=== PATIENT | female | born 1950 | race Two or more races ===

== ENCOUNTER 2021-04-05 08:55 | Outpatient (CLI) | payer OTHER | END 2021-04-05 08:56 | disposition home or self-care (01) | LOC: RAD 08:55 → EDBD 08:55 → RAD 08:56 | PROVIDERS: ATTEND Obstetrics & Gynecology | DX: R05.8 Other specified cough (principal) ==

== ENCOUNTER → 2021-08-26 | Outpatient (CLI) | payer OTHER | END | disposition home or self-care (01) | LOC: NUCLEAR 12:08 | PROVIDERS: ATTEND Specialist | DX: M81.0 Age-related osteoporosis without current pathological fracture (principal) ==

== ENCOUNTER 2021-09-04 11:10 | Outpatient (CLI) | payer OTHER | END 2021-09-04 11:12 | disposition home or self-care (01) | LOC: RAD 11:10 | PROVIDERS: ATTEND Specialist | DX: M19.042 Primary osteoarthritis, left hand (principal); M19.041 Primary osteoarthritis, right hand ==

== ENCOUNTER 2021-09-13 08:37 | Outpatient (CLI) | payer OTHER | END 2021-09-13 08:43 | disposition home or self-care (01) | LOC: TOM 08:37 | PROVIDERS: ATTEND Internal Medicine Pulmonary Disease | DX: R06.02 Shortness of breath (principal); J45.40 Moderate persistent asthma, uncomplicated; R07.9 Chest pain, unspecified ==

== ENCOUNTER 2021-10-04 07:13 | Outpatient (CLI) | payer OTHER | END 2021-10-04 07:16 | disposition home or self-care (01) | LOC: NUCLEAR 07:13 | PROVIDERS: ATTEND Internal Medicine Cardiovascular Disease | DX: I20.0 Unstable angina (principal) | CPT/HCPCS: 78452; 93017; A9500; J0153 ==

== ENCOUNTER 2023-06-15 14:38 | Outpatient (CLI) | payer OTHER ==
[2023-06-15 14:57] LABS: HEMATOCRIT 38.9 % (36.0-45.00); MEAN CELL VOLUME 89.1 fL (80.00-100.00); MEAN CORPUSCULAR HEMOGLOBIN 29.8 pg (27.00-32.0); MEAN CORPUSCULAR HGB CONC 33.5 g/dl (32.0-36.0); PLATELET COUNT 423 K/uL (150-450); RED BLOOD COUNT 4.36 M/uL (4.00-6.00); RED CELL DISTRIBUTION WIDTH 13.1 % (11.5-14.5)
== END 2023-06-15 14:46 | disposition home or self-care (01) ==
LOC: LAB 14:38
PROVIDERS: ATTEND Internal Medicine Hematology & Oncology
DX: J16.0 Chlamydial pneumonia (principal); D72.820 Lymphocytosis (symptomatic)

== ENCOUNTER 2023-12-14 10:20 | Outpatient (CLI) | payer OTHER | END 2023-12-14 10:21 | disposition home or self-care (01) | LOC: NUCLEAR 10:20 | PROVIDERS: ATTEND Internal Medicine Cardiovascular Disease | DX: I25.2 Old myocardial infarction (principal) ==

== ENCOUNTER 2024-02-01 08:12 | Outpatient (CLI) | payer OTHER | END 2024-02-01 08:23 | disposition home or self-care (01) | LOC: MAMO-SONO 08:12 | PROVIDERS: ATTEND Obstetrics & Gynecology | DX: N60.11 Diffuse cystic mastopathy of right breast (principal); Z12.31 Encounter for screening mammogram for malignant neoplasm of breast ==